=== PATIENT | male | born 1960 | race Caucasian/White ===

== ENCOUNTER 2018-09-27 14:04 | Outpatient (REF) | payer MEDICARE, MEDICAID, SELFPAY ==
[2018-09-27 21:40] LABS: Hemoglobin A1C 5.8 % (4.5-6.2)
[2018-09-27 21:43] LABS: ALT 49 U/L (12-78); AST 12 U/L (15-37); Albumin 3.9 g/dL (3.4-5.0); Alkaline Phosphatase 84 U/L (46-116); BUN 8 mg/dL (7-18); Bilirubin, Total 0.5 mg/dL (0.2-1.0); CREATININE 0.97 mg/dL (0.70-1.30); Calcium 9.5 mg/dL (8.5-10.1); Calculated LDL 71 mg/dL; Chloride 99 mmol/L (98-107); Cholesterol 142 mg/dL (50-200); Glucose 119 mg/dL (70-100); HDL Cholesterol 26 mg/dL (40-60); Potassium 4.2 mmol/L (3.5-5.1); Sodium 136 mmol/L (136-145); Total Protein 7.3 g/dL (6.4-8.2); Triglyceride 226 mg/dL (30-150)
[2018-09-27 22:58] LABS: COMMENT (LAB VIEW ONLY) 120.22 mg/dL; Microalb ug/mg Crea 8.2 ug/mg Cr
== END 2018-09-27 14:24 ==
LOC: NCHCN 14:04
PROVIDERS: PCP Internal Medicine; Visit Provider Nurse Practitioner Family
DX: I10 Essential (primary) hypertension (principal); R73.09 Other abnormal glucose; Z13.6 Encounter for screening for cardiovascular disorders
CPT/HCPCS: 80053; 80061; 83721; 82043; 82570; 83036

== ENCOUNTER 2019-03-16 10:16 | Outpatient (REF) | payer MEDICARE, MEDICAID, SELFPAY ==
[2019-03-16 21:19] LABS: ALT 61 U/L (16-63); AST 15 U/L (15-37); Alkaline Phosphatase 79 U/L (46-116); Anion Gap 13.5 mmol/L (3-11); BUN 13 mg/dL (7-18); Bilirubin, Total 0.7 mg/dL (0.2-1.0); CO2 26.5 mmol/L (21.0-32.0); CREATININE 1.09 mg/dL (0.70-1.30); Calcium 9.8 mg/dL (8.5-10.1); Calculated LDL 115 mg/dL; Chloride 103 mmol/L (98-107); Cholesterol 181 mg/dL (<200); Glucose 129 mg/dL (74-106); HDL Cholesterol 27 mg/dL (40-60); Sodium 143 mmol/L (136-145); Total Protein 7.4 g/dL (6.4-8.2); Triglyceride 197 mg/dL (<150)
[2019-03-16 21:34] LABS: Hemoglobin A1C 6.1 % (3.8-5.6)
== END 2019-03-16 10:36 ==
LOC: NCHCN 10:16
PROVIDERS: PCP Internal Medicine; Visit Provider Nurse Practitioner Family
DX: E78.5 Hyperlipidemia, unspecified (principal); R73.09 Other abnormal glucose; I10 Essential (primary) hypertension; F17.200 Nicotine dependence, unspecified, uncomplicated; G89.4 Chronic pain syndrome; J44.9 Chronic obstructive pulmonary disease, unspecified
CPT/HCPCS: 80053; 80061; 83036

== ENCOUNTER 2019-08-28 22:08 | Outpatient (REF) | payer MEDICARE, MEDICAID, SELFPAY ==
[2019-08-28 21:16] LABS: Abs Immature Grans 0.02 k/cumm (0.0-0.09); Absolute Basophil Count 0.02 k/cumm (0.0-0.2); Absolute Eosinophil Count 0.46 k/cumm (0.0-0.7); Absolute Lymphocyte Count 1.42 k/cumm (1.2-3.4); Absolute Neutrophil Count 7.64 k/cumm (1.2-6.7); Basophils % 0.2; Eosinophils % 4.4; HCT 44.4 % (40.0-50.0); HGB 14.9 g/dL (13.5-17.5); Immature Grans % 0.2 %; Lymphocytes % 13.4; Mean Corp. HGB Concentration 33.6 g/dL (32.0-36.0); Mean Corpuscular Hemoglobin 31.3 pg (27.0-33.0); Mean Corpuscular Volume 93.3 fL (80-95); Mean Platelet Volume 10.1 fL (8.0-11.0); Monocytes % 9.5; Neutrophils % 72.3; Platelet Count 356 x1000/uL (130-400); RBC 4.76 m/cumm (4.50-6.00); RBC Distribution Width 14.7 % (11.8-14.1); White Blood Cell Count 10.56 k/cumm (4.4-10.8)
[2019-08-28 21:30] LABS: Iron 61 ug/dL (65-175); Total Iron Binding Capacity 281 ug/dL (250-450); Transferrin Sat 22 % (20-55)
[2019-08-28 21:42] LABS: Ferritin 273 ng/mL (26-388)
== END 2019-08-28 22:28 ==
LOC: NCHCN 22:08
PROVIDERS: PCP Internal Medicine; Visit Provider Nurse Practitioner Community Health
DX: G47.61 Periodic limb movement disorder (principal); Z87.891 Personal history of nicotine dependence; R71.8 Other abnormality of red blood cells
CPT/HCPCS: 82728; 83540; 83550; 85025

== ENCOUNTER 2020-04-22 20:27 | Outpatient (REF) | payer MEDICARE, MEDICAID, SELFPAY ==
[2020-04-22 14:47] LABS: Hemoglobin A1C 6.2 % (<5.7)
[2020-04-22 14:48] LABS: Anion Gap 10.3 mmol/L (3-11); BUN 13 mg/dL (7-18); CO2 25.7 mmol/L (21.0-32.0); CREATININE 0.9 mg/dL (0.70-1.30); Calcium 8.9 mg/dL (8.5-10.1); Chloride 105 mmol/L (98-107); Glucose 108 mg/dL (74-106); Potassium 4.3 mmol/L (3.5-5.1); Sodium 141 mmol/L (136-145)
== END 2020-04-22 20:28 | disposition home or self-care (01) ==
LOC: NCHCN 20:27
PROVIDERS: PCP Internal Medicine; Visit Provider Nurse Practitioner Family
DX: J44.9 Chronic obstructive pulmonary disease, unspecified (principal); R73.03 Prediabetes; G89.4 Chronic pain syndrome; M50.10 Cervical disc disorder with radiculopathy, unspecified cervical region; M54.5 Low back pain; I10 Essential (primary) hypertension
CPT/HCPCS: 80048; 83036

== ENCOUNTER 2020-11-13 14:41 | Outpatient (REF) | payer MEDICARE, MEDICAID, SELFPAY ==
[2020-11-13 22:08] LABS: Anion Gap 8.7 mmol/L (3-11); BUN 16 mg/dL (7-18); CO2 30.3 mmol/L (21.0-32.0); Calcium 9.9 mg/dL (8.5-10.1); Chloride 105 mmol/L (98-107); Glucose 119 mg/dL (74-106); Potassium 4.1 mmol/L (3.5-5.1); Sodium 144 mmol/L (136-145)
== END 2020-11-13 14:42 | disposition home or self-care (01) ==
LOC: NCHCN 14:41
PROVIDERS: PCP Internal Medicine; Visit Provider Nurse Practitioner Family
DX: I10 Essential (primary) hypertension (principal)
CPT/HCPCS: 80048

== ENCOUNTER 2021-06-18 22:00 | Outpatient (REF) | payer MEDICARE, MEDICAID, SELFPAY ==
[2021-06-20 10:03] LABS: Hepatitis C Ab w Rflx HCV PCR Negative (Negative)
== END 2021-06-18 22:01 | disposition home or self-care (01) ==
LOC: NCHCN 22:00
PROVIDERS: PCP Internal Medicine; Visit Provider Nurse Practitioner Family
DX: Z11.59 Encounter for screening for other viral diseases (principal)
CPT/HCPCS: 86803

== ENCOUNTER 2021-07-24 09:51 | Outpatient (REF) | payer MEDICARE, MEDICAID, SELFPAY ==
[2021-07-24 15:38] LABS: Anion Gap 8.3 mmol/L (3-11); BUN 12 mg/dL (7-18); CO2 30.7 mmol/L (21.0-32.0); Calcium 9.5 mg/dL (8.5-10.1); Chloride 99 mmol/L (98-107); Glucose 136 mg/dL (74-106); Potassium 3.3 mmol/L (3.5-5.1); Sodium 138 mmol/L (136-145)
== END 2021-07-24 09:52 | disposition home or self-care (01) ==
LOC: NCHCN 09:51
PROVIDERS: PCP Internal Medicine; Visit Provider Nurse Practitioner Family
DX: R73.03 Prediabetes (principal); I10 Essential (primary) hypertension; G89.4 Chronic pain syndrome
CPT/HCPCS: 80048; 83036

== ENCOUNTER 2021-11-12 13:41 | Outpatient (REF) | payer MEDICARE, MEDICAID, SELFPAY ==
[2021-11-12 21:25] LABS: Anion Gap 12.2 mmol/L (3-11); BUN 15 mg/dL (7-18); CO2 26.8 mmol/L (21.0-32.0); Calcium 9.5 mg/dL (8.5-10.1); Chloride 99 mmol/L (98-107); Estimated GFR 84.57 (mL/min/1.73m2); Glucose 124 mg/dL (74-106); Potassium 3.5 mmol/L (3.5-5.1); Sodium 138 mmol/L (136-145)
== END 2021-11-12 13:42 | disposition home or self-care (01) ==
LOC: NCHCN 13:41
PROVIDERS: PCP Internal Medicine; Visit Provider Family Medicine
DX: R73.03 Prediabetes (principal)
CPT/HCPCS: 80048; 83036

== ENCOUNTER 2022-10-12 16:43 | Outpatient (REF) | payer MEDICARE, MEDICAID, SELFPAY ==
[2022-10-12 21:32] LABS: HCT 42.3 % (40.0-50.0); HGB 14.4 g/dL (13.5-17.5); MCH 30.4 pg (27.0-33.0); MCV 89 fL (80-95); MPV 10.1 fL (8.0-11.0); Platelet Count 365 10^3/uL (130-400); RBC 4.73 10^6/uL (4.36-5.78); RDW 13.5 % (11.8-14.1); RDW-SD 44.3 fL; WBC 10.16 10^3/uL (4.4-10.8)
[2022-10-12 21:40] LABS: ALT 72 U/L (16-63); AST 23 U/L (15-37); Albumin 3.8 g/dL (3.4-5.0); Alkaline Phosphatase 90 U/L (46-116); Anion Gap 9.6 mmol/L (3-11); BUN 14 mg/dL (7-18); Bilirubin, Total 0.9 mg/dL (0.2-1.0); CO2 27.4 mmol/L (21.0-32.0); Chloride 100 mmol/L (98-107); Estimated GFR 84.05 (mL/min/1.73m2); Glucose 131 mg/dL (74-106); Sodium 137 mmol/L (136-145); Total Protein 7.2 g/dL (6.4-8.2)
[2022-10-12 21:57] LABS: Potassium 2.8 mmol/L (3.5-5.1)
[2022-10-12 22:01] LABS: Hemoglobin A1C 6.1 % (<5.7)
== END 2022-10-12 16:44 | disposition home or self-care (01) ==
LOC: NCHCN 16:43
PROVIDERS: PCP Internal Medicine; Visit Provider Nurse Practitioner Family
DX: I10 Essential (primary) hypertension (principal); R73.03 Prediabetes
CPT/HCPCS: 80053; 85027; 83036

== ENCOUNTER 2022-10-15 19:00 | Outpatient (REF) | payer MEDICARE, MEDICAID, SELFPAY ==
[2022-10-15 16:29] LABS: Potassium 3.3 mmol/L (3.5-5.1)
== END 2022-10-15 19:01 | disposition home or self-care (01) ==
LOC: NCHCN 19:00
PROVIDERS: PCP Internal Medicine; Visit Provider Nurse Practitioner Family
DX: E87.6 Hypokalemia (principal)
CPT/HCPCS: 84132

== ENCOUNTER 2022-10-30 19:03 | Outpatient (REF) | payer MEDICARE, MEDICAID, SELFPAY ==
[2022-10-30 16:24] LABS: Anion Gap 10.9 mmol/L (3-11); BUN 14 mg/dL (7-18); CO2 26.1 mmol/L (21.0-32.0); CREATININE 1.1 mg/dL (0.70-1.30); Calcium 9.7 mg/dL (8.5-10.1); Chloride 103 mmol/L (98-107); Estimated GFR 74.96 (mL/min/1.73m2); Glucose 152 mg/dL (74-106); Potassium 3.5 mmol/L (3.5-5.1); Sodium 140 mmol/L (136-145)
== END 2022-10-30 19:04 | disposition home or self-care (01) ==
LOC: NCHCN 19:03
PROVIDERS: PCP Internal Medicine; Visit Provider Nurse Practitioner Family
DX: E87.6 Hypokalemia (principal); I10 Essential (primary) hypertension
CPT/HCPCS: 80048

== ENCOUNTER 2023-04-05 22:21 | Outpatient (REF) | payer MEDICARE, MEDICAID, SELFPAY ==
[2023-04-05 23:27] LABS: ALT 50 U/L (16-63); AST 19 U/L (15-37); Albumin 3.6 g/dL (3.4-5.0); Alkaline Phosphatase 90 U/L (46-116); Anion Gap 6.9 mmol/L (3-11); BUN 13 mg/dL (7-18); Bilirubin, Total 0.5 mg/dL (0.2-1.0); CO2 27.1 mmol/L (21.0-32.0); Chloride 103 mmol/L (98-107); Estimated GFR 83.52 (mL/min/1.73m2); Glucose 121 mg/dL (74-106); Potassium 3.9 mmol/L (3.5-5.1); Sodium 137 mmol/L (136-145); Total Protein 7.3 g/dL (6.4-8.2)
== END 2023-04-05 22:22 | disposition home or self-care (01) ==
LOC: NCHCN 22:21
PROVIDERS: PCP Internal Medicine; Visit Provider Nurse Practitioner Family
DX: I10 Essential (primary) hypertension (principal)
CPT/HCPCS: 80053

== ENCOUNTER 2023-07-12 16:00 | Outpatient (REF) | payer MEDICARE, MEDICAID, SELFPAY ==
[2023-07-12 21:16] LABS: HCT 40.4 % (40.0-50.0); HGB 13.3 g/dL (13.5-17.5); MCHC 32.9 % (32.0-36.0); MCV 94 fL (80-95); MPV 9.9 fL (8.0-11.0); Platelet Count 364 10^3/uL (130-400); RBC 4.29 10^6/uL (4.36-5.78); RDW 13.9 % (11.8-14.1); WBC 8.52 10^3/uL (4.4-10.8)
[2023-07-12 21:25] LABS: Anion Gap 8.6 mmol/L (3-11); BUN 10 mg/dL (7-18); CO2 26.4 mmol/L (21.0-32.0); Calcium 9.4 mg/dL (8.5-10.1); Calculated LDL 41 mg/dL (<100); Chloride 101 mmol/L (98-107); Cholesterol 116 mg/dL (<200); Estimated GFR 83.52 (mL/min/1.73m2); Glucose 122 mg/dL (74-106); HDL Cholesterol 29 mg/dL (40-60); Potassium 3.7 mmol/L (3.5-5.1); Sodium 136 mmol/L (136-145); Triglyceride 234 mg/dL (<150)
[2023-07-12 21:34] LABS: Hemoglobin A1C 6.3 % (<5.7)
== END 2023-07-12 16:01 | disposition home or self-care (01) ==
LOC: NCHCN 16:00
PROVIDERS: PCP Internal Medicine; Visit Provider Nurse Practitioner Family
DX: I10 Essential (primary) hypertension (principal); R73.03 Prediabetes; E78.5 Hyperlipidemia, unspecified; D64.9 Anemia, unspecified
CPT/HCPCS: 80048; 80061; 85027; 83036

== ENCOUNTER 2024-03-28 16:32 | Outpatient (REF) | payer MEDICARE, MEDICAID, SELFPAY ==
[2024-03-28 16:29] LABS: Calculated LDL 62 mg/dL (<100); Cholesterol 127 mg/dL (<200); HDL Cholesterol 34 mg/dL (40-60); Triglyceride 155 mg/dL (<150)
== END 2024-03-28 16:33 | disposition home or self-care (01) ==
LOC: LBN 16:32
PROVIDERS: PCP Internal Medicine; Visit Provider Internal Medicine Cardiovascular Disease
DX: I25.10 Atherosclerotic heart disease of native coronary artery without angina pectoris (principal)
CPT/HCPCS: 80061

== ENCOUNTER 2024-06-27 13:14 | Outpatient (REF) | payer MEDICARE, MEDICAID, SELFPAY ==
[2024-06-27 14:33] LABS: HCT 41.1 % (40.0-50.0); HGB 13.3 g/dL (13.5-17.5); MCH 30.4 pg (27.0-33.0); MCHC 32.4 % (32.0-36.0); MCV 94 fL (80-95); MPV 10.3 fL (8.0-11.0); Platelet Count 336 10^3/uL (130-400); RBC 4.37 10^6/uL (4.36-5.78); RDW 13.7 % (11.8-14.1); WBC 7.71 10^3/uL (4.4-10.8)
[2024-06-27 15:33] LABS: Calculated LDL 53 mg/dL (<100); Cholesterol 120 mg/dL (<200); Folate 8.3 ng/mL (8.6-20.0); HDL Cholesterol 35 mg/dL (>or=40); TSH 1.09 uIU/mL (0.36-3.74); Triglyceride 161 mg/dL (<150); Vitamin B12 413 pg/mL (193-986)
[2024-06-28 20:35] LABS: ALT 93 U/L (16-63); AST 42 U/L (15-37); Albumin 4.3 g/dL (3.4-5.0); Alkaline Phosphatase 92 U/L (46-116); Anion Gap 15.8 mmol/L (3-11); BUN 16 mg/dL (7-18); Bilirubin, Total 0.9 mg/dL (0.2-1.0); CO2 22.2 mmol/L (21.0-32.0); CREATININE 1.2 mg/dL (0.70-1.30); Calcium 9.5 mg/dL (8.5-10.1); Chloride 104 mmol/L (98-107); Glucose 117 mg/dL (74-106); Potassium 4.5 mmol/L (3.5-5.1); Sodium 142 mmol/L (136-145); Total Protein 7.9 g/dL (6.4-8.2)
[2024-06-28 20:51] LABS: Hemoglobin A1C 6.2 % (<5.7)
== END 2024-06-27 13:15 | disposition home or self-care (01) ==
LOC: NCHCN 13:14
PROVIDERS: PCP Internal Medicine; Visit Provider Nurse Practitioner Family
DX: E78.5 Hyperlipidemia, unspecified (principal); D64.9 Anemia, unspecified; R73.03 Prediabetes
CPT/HCPCS: 80053; 80061; 85027; 82607; 82746; 83036; 84443